=== PATIENT | female | born 1950 | race Two or more races ===

== ENCOUNTER 2020-05-19 11:14 | Emergency (ER) | payer OTHER ==
[~2020-05-19] VITALS: Ht 167.6 cm; Wt 104.8 kg
[2020-05-19] MEDS ORDERED: ALTACE10 MG (11:49)
== END 2020-05-19 18:37 | disposition home or self-care (01) ==
LOC: ER 11:14
DX: A90 Dengue fever [classical dengue] (principal); R10.84 Generalized abdominal pain; Z03.818 Encounter for observation for suspected exposure to other biological agents ruled out